=== PATIENT | female | born 1955 | race African-American/Black ===

== ENCOUNTER 2018-06-26 09:52 | Emergency (ER) | payer SELFPAY ==
[~2018-06-26] VITALS: Ht 154.9 cm; Wt 59.9 kg
[2018-06-26 10:24] VITALS: BP 130/58
[2018-06-26] MEDS ORDERED: LIDOCAINE 1% PF 2 ML VIAL. INJ ONE (10:45)
[2018-06-26] MEDS ORDERED: cefTRIAXone IM 1 GM VIAL IM ONE (10:45)
--- NOTE | 2018-06-26 10:52 | PHYS DOC ---
Adult General Chief Complaint Chief Complaint: FINGER INJURY HPI HPI Patient is a 63 year old female with history of smoking who presents to the ED today with right middle finger infection. Patient states the infection began last week, she was seen at [facility], was started on Bactrim. She went today for reevaluation today and was sent to the ED. Patient denies any fever. She is right handed. Review of Systems Review of Systems Constitutional: Denies fever or chills [] Musculoskeletal: Denies back pain or joint pain [] Integument: Reports right middle finger infection Neurologic: Denies headache, focal weakness or sensory changes [] All other systems were reviewed and found to be within normal limits, except as documented in this note. Current Medications Current Medications Current Medications Medications (Trade) Dose Ordered Sig/Jonathon Start Time Stop Time Status Last Admin Dose Admin Ceftriaxone Sodium (Rocephin Im) 1 gm 1X ONCE 06/26/18 10:45 06/26/18 10:46 DC 06/26/18 11:04 1 GM Lidocaine HCl (Xylocaine-Mpf 1% 2ml Vial) 2 ml 1X ONCE 06/26/18 10:45 06/26/18 10:46 DC 06/26/18 11:04 2 ML Allergies Allergies Allergies Coded Allergies Type Severity Reaction Last Updated Verified No Known Drug Allergies 06/26/18 No Physical Exam Physical Exam Constitutional: Well developed, well nourished, no acute distress, non-toxic appearance. [] Skin: Warm, dry, dorsal aspect of the right middle finger with a none indurated area approximately 3 x 1 cm consistent with a paronychia that opened up and drained. The area has an open area at the base of the nailbed. No obvious drainage noted during physical exam. No fluctuance. Redness noted to the area with mild warmth. Poorly cut nail into the nailed of the right middle finger. Full ROM to the right middle finger. +2 right radial pulse. Cap refill <2 seconds to the right middle finger. Back: No tenderness, no CVA tenderness. [] Extremities: No tenderness, no cyanosis, no clubbing, ROM intact, no edema. [] Neurologic: Alert and oriented X 3, normal motor function, normal sensory function, no focal deficits noted. [] Psychologic: Affect normal, judgement normal, mood normal. [] Current Patient Data Vital Signs Vital Signs Date Time Temp Pulse Resp B/P (MAP) Pulse Ox O2 Delivery O2 Flow Rate FiO2 06/26/18 10:24 99.0 60 16 130/58 (82) 98 Room Air 99.0 EKG EKG [] Radiology/Procedures Radiology/Procedures [] Course & Med Decision Making Course & Med Decision Making Pertinent Labs and Imaging studies reviewed. (See chart for details) This is a 63-year-old female patient presented to the ED today with paronychia infection of the right middle finger, patient was started on Bactrim approximately 5 days ago. She went to [facility] and was sent back to the ED. Patient was given Rocephin injection in the ED. Encouraged to continue taking the Bactrim. Infection appears to be improving considerably there was a blister over the area that has opened up and drained. Encouraged to continue soaking in Epsom salt water. Follow-up with PCP in 1-2 weeks. Dragon Disclaimer Dragon Disclaimer This electronic medical record was generated, in whole or in part, using a voice recognition dictation system. Departure Departure Impression: Primary Impression: Paronychia Disposition: 01 HOME, SELF-CARE Condition: STABLE Referrals: NON,STAFF (PCP) Follow-up with your doctor in 1-2 weeks Patient Instructions: Paronychia, [id number] Additional Instructions: You were evaluated in the emergency room for finger infection. Please soaking the finger in Epsom salted warm water twice a day. Please continue taking your Bactrim until completed. Please avoid cutting your nail so close to the the nailbed. Please follow-up with your own doctor in one week. Come back to the ED at any point symptoms worsen. MYLA RIBEIRO APRN Jun 26, 2018 10:52
== END 2018-06-26 11:33 | disposition home or self-care (01) ==
LOC: ER 09:52
DX: L03.011 Cellulitis of right finger (principal)
CPT/HCPCS: 96372; 99283; J0696

== ENCOUNTER 2018-08-01 08:42 | Emergency (ER) | payer SELFPAY ==
[~2018-08-01] VITALS: Ht 154.9 cm; Wt 59.0 kg
[2018-08-01] MEDS ORDERED: DOCUSATE 100 MG/10 ML SOLUTION. AS STA (08:51)
--- NOTE | 2018-08-01 08:56 | PHYS DOC ---
Past Medical History Past Medical History: No Pertinent History Past Surgical History: No Surgical History Alcohol Use: None Drug Use: None Adult General Chief Complaint Chief Complaint: EARACHE/EAR PAIN HPI HPI Patient is a 63 year old female with no significant medical history who presents to the ED today complaining of 10 out of 10 left ear pain that began a week ago. Patient denies any fever coughing or congestion. Review of Systems Review of Systems Constitutional: Denies fever or chills [] Eyes: Denies change in visual acuity, redness, or eye pain [] HENT: Reports left ear pain. Denies nasal congestion or sore throat [] Respiratory: Denies cough or shortness of breath [] Cardiovascular: No additional information not addressed in HPI [] GI: Denies abdominal pain, nausea, vomiting, bloody stools or diarrhea [] : Denies dysuria or hematuria [] Musculoskeletal: Denies back pain or joint pain [] Integument: Denies rash or skin lesions [] All other systems were reviewed and found to be within normal limits, except as documented in this note. Current Medications Current Medications Current Medications Medications (Trade) Dose Ordered Sig/Jonathon Start Time Stop Time Status Last Admin Dose Admin Acetaminophen (Tylenol) 1,000 mg 1X ONCE 08/01/18 09:00 08/01/18 09:01 DC 08/01/18 09:11 1,000 MG Docusate Sodium (Colace Solution) 100 mg 1X STAT 08/01/18 08:51 08/01/18 08:58 DC 08/01/18 09:10 100 MG Allergies Allergies Allergies Coded Allergies Type Severity Reaction Last Updated Verified No Known Drug Allergies 06/26/18 No Physical Exam Physical Exam Constitutional: Well developed, well nourished, no acute distress, non-toxic appearance. [] HENT: Normocephalic, atraumatic, bilateral external ears normal, oropharynx moist, no oral exudates, nose normal. [] Bilateral TM are impacted with cerumen. TM cannot be visualized Eyes: PERRLA, EOMI, conjunctiva normal, no discharge. [] Neck: Normal range of motion, no tenderness, supple, no stridor. [] Cardiovascular:Heart rate regular rhythm, no murmur [] Lungs & Thorax: Bilateral breath sounds clear to auscultation [] Abdomen: Bowel sounds normal, soft, no tenderness, no masses, no pulsatile masses. [] Skin: Warm, dry, no erythema, no rash. [] Back: No tenderness, no CVA tenderness. [] Extremities: No tenderness, no cyanosis, no clubbing, ROM intact, no edema. [] Neurologic: Alert and oriented X 3, normal motor function, normal sensory function, no focal deficits noted. [] Psychologic: Affect normal, judgement normal, mood normal. [] Current Patient Data Vital Signs Vital Signs Date Time Temp Pulse Resp B/P (MAP) Pulse Ox O2 Delivery O2 Flow Rate FiO2 08/01/18 10:32 103/52 (69) 08/01/18 10:28 82 16 97 Room Air 08/01/18 08:48 99.8 99.8 EKG EKG [] Radiology/Procedures Radiology/Procedures [] Course & Med Decision Making Course & Med Decision Making Pertinent Labs and Imaging studies reviewed. (See chart for details) This is a 63-year-old female patient presenting to the ED today with left ear pain that began a week ago. Both TM cannot be visualized due to cerumen impaction. Colace was used to clean both the ears successfully. A lot of cerumen was removed. Both TMs are visualized and they appear normal. A shunt was running a temperature of 99.8, she was concerned she has pneumonia, chest x- ray was done, chest x-ray is negative. Patient was discharged home. Follow-up with you see as well as PCP in 1-2 weeks. Dragon Disclaimer Dragon Disclaimer This electronic medical record was generated, in whole or in part, using a voice recognition dictation system. Departure Departure Impression: Primary Impression: Fever Additional Impressions: Impacted cerumen of both ears Otalgia, left ear Disposition: HOME, SELF-CARE Condition: STABLE Referrals: NON,STAFF (PCP) follow up with your doctor in 1-2 weeks Patient Instructions: Cerumen Impaction, Otalgia-Brief Additional Instructions: You were evaluated in the emergency room and noted to have cerumen impaction, we cleaned up your ears. Take Tylenol or Motrin for pain or fever. Follow-up with your doctor in 1-2 weeks. Problem Qualifiers Primary Impression: Fever Fever type: unspecified Qualified Codes: R50.9 - Fever, unspecified MUTUNGAMYLA CMO & PRESIDENT Aug 01, 2018 08:56
[2018-08-01] MEDS ORDERED: ACETAMINOPHEN 500 MG TABLET PO ONE (09:00)
[2018-08-01 10:32] VITALS: BP 103/52
--- NOTE | 2018-08-01 10:32 | RAD ---
Chest, 2 views, 08/01/2018: HISTORY: Fever The heart is at the upper limits of normal in size. The pulmonary vascularity is normal. No pulmonary consolidation is seen. There is no evidence of pleural fluid. IMPRESSION: 1. Borderline cardiomegaly. 2. No acute abnormality is detected. Electronically signed by: Willie Reyna MD (08/01/2018 10:29 AM) [facility]
== END 2018-08-01 10:59 | disposition home or self-care (01) ==
LOC: ER 08:42
DX: H61.23 Impacted cerumen, bilateral (principal); R50.9 Fever, unspecified
CPT/HCPCS: 69209; 71046; 99284

== ENCOUNTER 2020-01-28 11:39 | Emergency (ER) | payer SELFPAY ==
[~2020-01-28] VITALS: Ht 154.9 cm; Wt 59.0 kg
--- NOTE | 2020-01-28 11:53 | PHYS DOC ---
Past Medical History Past Medical History: No Pertinent History Past Surgical History: No Surgical History Smoking Status: Current Some Day Smoker Alcohol Use: None Drug Use: None General Adult EDM: Chief Complaint: DIZZY/LIGHT HEADED HPI: HPI: Patient is a 64 year old female who presents with a chief complaint of dizziness that began 5 days ago. Patient has had intermittent dizziness is worse with standing that she described as lightheadedness with some mild nausea. Patient denies any pain at this time. Patient denies any focal weakness but feels generally weak. Patient denies any recent illnesses such as nausea vomiting diarrhea or blood in her stool. Review of Systems: Review of Systems: Constitutional: Denies fever or chills. [] Eyes: Denies change in visual acuity. [] HENT: Denies nasal congestion or sore throat. Patient does have some discomfort in her right ear that is been there for some time Respiratory: Denies cough or shortness of breath. [] Cardiovascular: Denies chest pain or edema. [] GI: Denies abdominal pain, vomiting, bloody stools or diarrhea. [] Patient does have some nausea : Denies dysuria. [] Musculoskeletal: Denies back pain or joint pain. [] Integument: Denies rash. [] Neurologic: Complains of generalized weakness and dizziness but no focal deficits Endocrine: Denies polyuria or polydipsia. [] Lymphatic: Denies swollen glands. [] Psychiatric: Denies depression or anxiety. [] Heart Score: Risk Factors: Risk Factors: DM, Current or recent (<one month) smoker, HTN, HLP, family history of CAD, obesity. Risk Scores: Score 0 - 3: 2.5% MACE over next 6 weeks - Discharge Home Score 4 - 6: 20.3% MACE over next 6 weeks - Admit for Clinical Observation Score 7 - 10: 72.7% MACE over next 6 weeks - Early Invasive Strategies Allergies: Allergies: Allergies Coded Allergies Type Severity Reaction Last Updated Verified No Known Drug Allergies 06/26/18 No Physical Exam: PE: Constitutional: Well developed, well nourished, no acute distress, non-toxic appearance. [] HENT: Normocephalic, atraumatic, cerumen in the right ear, no trismus, nose normal. [] Eyes: PERRLA, EOMI, conjunctiva normal, no discharge. [] Neck: Normal range of motion, no tenderness, supple, no stridor. [] Cardiovascular:Heart rate regular rhythm, peripheral pulses are intact cap refill is brisk Lungs & Thorax: Bilateral breath sounds clear no respiratory distress Abdomen: Bowel sounds normal, soft, no tenderness, no masses, no pulsatile masses. [] Skin: Warm, dry, no erythema, no rash. [] Back: No tenderness, no CVA tenderness. [] Extremities: No tenderness, no cyanosis, no clubbing, ROM intact, no edema. [] Neurologic: Alert and oriented X 3, normal motor function, normal sensory function, no focal deficits noted. [] Normal cerebellar exam Psychologic: Affect normal, judgement normal, mood normal. [] Current Patient Data: Labs: Laboratory Tests Test 01/28/20 12:07 01/28/20 14:41 White Blood Count 3.1 x10^3/uL Red Blood Count 3.97 x10^6/uL Hemoglobin 10.3 g/dL Hematocrit 31.2 % Mean Corpuscular Volume 79 fL Mean Corpuscular Hemoglobin 26 pg Mean Corpuscular Hemoglobin Concent 33 g/dL Red Cell Distribution Width 19.6 % Platelet Count 241 x10^3/uL Neutrophils (%) (Auto) 40 % Lymphocytes (%) (Auto) 51 % Monocytes (%) (Auto) 7 % Eosinophils (%) (Auto) 1 % Basophils (%) (Auto) 1 % Neutrophils # (Auto) 1.2 x10^3/uL Lymphocytes # (Auto) 1.6 x10^3/uL Monocytes # (Auto) 0.2 x10^3/uL Eosinophils # (Auto) 0.0 x10^3/uL Basophils # (Auto) 0.0 x10^3/uL Sodium Level 137 mmol/L Potassium Level 3.9 mmol/L Chloride Level 106 mmol/L Carbon Dioxide Level 26 mmol/L Anion Gap 5 Blood Urea Nitrogen 8 mg/dL Creatinine 0.7 mg/dL Estimated GFR (Cockcroft-Gault) 102.6 BUN/Creatinine Ratio 11 Glucose Level 100 mg/dL Calcium Level 8.4 mg/dL Total Bilirubin 0.1 mg/dL Aspartate Amino Transf (AST/SGOT) 22 U/L Alanine Aminotransferase (ALT/SGPT) 20 U/L Alkaline Phosphatase 103 U/L Troponin I Quantitative < 0.017 ng/mL Total Protein 8.1 g/dL Albumin 2.9 g/dL Albumin/Globulin Ratio 0.6 Urine Collection Type Unknown Urine Color Yellow Urine Clarity Clear Urine pH 5.5 Urine Specific [place] <=1.005 Urine Protein Negative mg/dL Urine Glucose (UA) Negative mg/dL Urine Ketones (Stick) Negative mg/dL Urine Blood Negative Urine Nitrite Negative Urine Bilirubin Negative Urine Urobilinogen Dipstick 0.2 mg/dL Urine Leukocyte Esterase Negative Urine RBC 1-2 /HPF Urine WBC Occ /HPF Urine Squamous Epithelial Cells Few /LPF Urine Bacteria 0 /HPF Urine Mucus Slight /LPF Vital Signs: Vital Signs Date Time Temp Pulse Resp B/P (MAP) Pulse Ox O2 Delivery O2 Flow Rate FiO2 01/28/20 15:21 55 14 100 01/28/20 14:51 55 14 100 01/28/20 14:21 54 14 100 01/28/20 13:50 48 16 100 01/28/20 13:21 46 16 100 01/28/20 12:51 50 16 100 01/28/20 11:50 98.1 55 16 155/70 (98) 99 Room Air 98.1 01/28/20 11:49 55 16 100 EKG: EKG: [] EKG interpreted by la sinus bradycardia with a rate of 55 normal axis normal intervals normal ST segments Radiology/Procedures: Radiology/Procedures: [][facility] [address] [place] [address] IMAGING REPORT Signed PATIENT: DIANA STANTON ACCOUNT: [id number] : 1955 LOCATION: ER AGE: 64 SEX: F EXAM STATUS: REG ER ORD. PHYSICIAN: KELBY GRIJALVA MD REASON: dizzy PROCEDURE: PORTABLE CHEST 1V AP portable chest radiograph 01/28/2020 Clinical History: Dizziness. An AP erect portable digital radiograph of the chest was obtained. Comparison study is dated 08/01/2018. The cardiac silhouette is borderline enlarged. The thoracic aorta is minimally tortuous. Atherosclerotic calcification of the thoracic aorta is seen. No acute parenchymal or infiltrate is noted. No pneumothorax or pleural effusion is seen. Degenerative changes are seen involving the thoracic spine and both shoulders. Impression: No acute abnormality is seen. Electronically signed by: Juice Barrientos MD (01/28/2020 12:42 PM) [id number] DICTATED and SIGNED BY: JUICE BARRIENTOS MD DATE: 01/28/20 1242 [facility] [address] [place] [address] IMAGING REPORT Signed PATIENT: DIANA STANTON ACCOUNT: [id number] : 1955 LOCATION: ER AGE: 64 SEX: F EXAM STATUS: REG ER ORD. PHYSICIAN: KELBY GRIJALVA MD REASON: dizzy PROCEDURE: CT HEAD WO CONTRAST EXAM: CT Head without IV contrast INDICATION: Reason: dizzy / Spl. Instructions: / History: TECHNIQUE: Multi-detector row CT images were obtained of the head without the use of IV contrast. All CT scans performed at this facility utilize dose optimization techniques as appropriate to the exam, including the following: Automated exposure control and adjustment of the mA and/or KV according to patient size (this includes techniques or standardized protocols for targeted exams where dose is indication/reason for exam). COMPARISON: None FINDINGS: BRAIN PARENCHYMA: No evidence of acute intraparenchymal hemorrhage or infarct. No abnormal parenchymal density or mass. VENTRICLES & EXTRA-AXIAL SPACES: Ventricles are within normal limits. Basilar cisterns are patent. No pathologic extra-axial fluid collection or mass. ORBITS: Orbital contents are unremarkable. SINUSES: Visualized paranasal sinuses and mastoid air cells are clear. OSSEOUS & SOFT TISSUES: Calvarium and skull base are intact. There is however diffuse mottled demineralization in the calvarium. IMPRESSION: 1. No acute intracranial pathology. 2. Diffuse mottled osseous demineralization in a pattern suspicious for a marrow replacing process such as multiple myeloma. Correlate clinically. Electronically signed by: Jin Sharpe MD (01/28/2020 12:29 PM) [id number] DICTATED and SIGNED BY: JIN SHARPE MD DATE: 01/28/20 5231 Course & Med Decision Making: Course & Med Decision Making Pertinent Labs and Imaging studies reviewed. (See chart for details) [] 64-year-old female presents with lightheaded dizziness. Patient has a normal neurological exam including a normal cerebellar exam. Patient has CT findings concerning for multiple myeloma although there is no protein in her urine. Patient does have mild anemia but no history of hematochezia or melena. Discussed with patient the importance of follow-up with a artificial flowers dyer and oncologist to rule out multiple myeloma as well as work-up for anemia. I do not think that she has had a stroke at this point with a normal neurological exam and no abnormal brain findings in light of having symptoms for 5 days. Patient has no chest pain and her EKG is normal and her troponin is negative, doubt acute coronary syndrome. Patient does have some bradycardia which may be the cause of her symptoms. Dragon Disclaimer: Dragon Disclaimer: This electronic medical record was generated, in whole or in part, using a voice recognition dictation system. Departure Departure Impression: Primary Impression: Dizziness Additional Impressions: Anemia Bradycardia Disposition: 01 DC HOME SELF CARE/HOMELESS Referrals: NO PCP (PCP) DARYL NG MD Patient Instructions: Anemia, Nonspecific-Brief, Bradycardia, Dizziness Additional Instructions: EMERGENCY DEPARTMENT GENERAL DISCHARGE INSTRUCTIONS THANK YOU for coming to [facility] Emergency Department (ED) today and trusting us with your care. We trust that you had a positive experience in our Emergency Department. If you wish to speak to the department Management you can contact the production department supervisor at . YOUR FOLLOW UP INSTRUCTIONS ARE FOLLOWS: Do you have a private doctor? If you do not have a private doctor, please ask for a resource list of physicians or clinics that may be able to assist you with follow up care. The Emergency Physician has interpreted your x-rays. The X-ray specialist will also review them. If there is a change in the findings you will be notified in 48 hours when at all possible. A lab test or lab culture may have been done, your results will be reviewed and you will be notified if you need a change in treatment. ADDITIONAL INSTRUCTIONS AND INFORMATION Your care today has been supervised by a physician who is specially trained in emergency care. Many problems require more than one evaluation for a complete diagnosis and treatment. We recommend that you schedule your follow up appointment as recommended to ensure complete treatment of your illness or injury. If you are unable to obtain follow up care and continue to have a problem, or if your condition worsens we recommend that you return to the ED. We are not able to safely determine your condition over the phone nor are we able to give sound medical advice over the phone. For these safety reasons, if you call for medical advice we will ask you to come to the ED for further evaluation If you have any questions regarding these discharge instructions please call the ED at . SAFETY INFORMATION In the interest of safety, wellness, and injury prevention; we encourage you to wear your seatbelt, if you smoke; quit smoking, and we encourage your family to use protective helmet for bicycling and other sporting events that present an increased risk for head injury. IF YOUR SYMPTOMS WORSEN OR NEW SYMPTOMS DEVELOP, OR YOU HAVE CONCERNS ABOUT YOUR CONDITION; OR IF YOUR CONDITION WORSENS WHILE YOU ARE WAITING FOR YOUR FOLLOW UP APPOINTMENT; EITHER CONTACT YOUR PRIMARY CARE DOCTOR, THE PHYSICIAN WHOSE NAME AND NUMBER YOU WERE GIVEN, OR RETURN TO THE ED IMMEDIATELY. Scripts Ondansetron Hcl (ZOFRAN) 4 Mg Tablet 1 TAB PO Q6HRS for NAUSEA, #20 TAB Prov: KELBY GRIJALVA MD 01/28/20 Meclizine Hcl (MECLIZINE HCL) 25 Mg Tablet 25 MG PO PRN TID PRN for DIZZINESS, #30 dizziness Prov: KELBY GRIJALVA MD 01/28/20 KELBY GRIJALVA MD Jan 28, 2020 11:53
[2020-01-28 12:16] LABS: BASO % 1 % (0-3); EOS % 1 % (0-3); HEMATOCRIT 31.2 % (36.0-47.0); HEMOGLOBIN 10.3 g/dL (12.0-15.5); LYMPH # 1.6 x10^3/uL (1.0-4.8); LYMPH % 51 % (24-48); MEAN CORPUSCULAR HEMOGLOBIN 26 pg (25-35); MEAN CORPUSCULAR HGB CONC 33 g/dL (31-37); MEAN CORPUSCULAR VOLUME 79 fL (79-100); MONO # 0.2 x10^3/uL (0.0-1.1); MONO % 7 % (0-9); NEUT # 1.2 x10^3/uL (1.8-7.7); NEUT % 40 % (31-73); PLATELET COUNT 241 x10^3/uL (140-400); RED BLOOD COUNT 3.97 x10^6/uL (3.50-5.40); RED CELL DISTRIBUTION WIDTH 19.6 % (11.5-14.5); WHITE BLOOD COUNT 3.1 x10^3/uL (4.0-11.0)
[2020-01-28 12:27] LABS: CALCIUM 8.4 mg/dL (8.5-10.1); CREATININE 0.7 mg/dL (0.6-1.0); GFR 102.6; POTASSIUM 3.9 mmol/L (3.5-5.1)
[2020-01-28 12:32] LABS: ALBUMIN 2.9 g/dL (3.4-5.0); ALBUMIN/GLOBULIN RATIO 0.6 (1.0-1.7); TOTAL BILIRUBIN 0.1 mg/dL (0.2-1.0); TOTAL PROTEIN 8.1 g/dL (6.4-8.2)
--- NOTE | 2020-01-28 12:32 | RAD ---
EXAM: CT Head without IV contrast INDICATION: Reason: dizzy / Spl. Instructions: / History: TECHNIQUE: Multi-detector row CT images were obtained of the head without the use of IV contrast. All CT scans performed at this facility utilize dose optimization techniques as appropriate to the exam, including the following: Automated exposure control and adjustment of the mA and/or KV according to patient size (this includes techniques or standardized protocols for targeted exams where dose is indication/reason for exam). COMPARISON: None FINDINGS: BRAIN PARENCHYMA: No evidence of acute intraparenchymal hemorrhage or infarct. No abnormal parenchymal density or mass. VENTRICLES & EXTRA-AXIAL SPACES: Ventricles are within normal limits. Basilar cisterns are patent. No pathologic extra-axial fluid collection or mass. ORBITS: Orbital contents are unremarkable. SINUSES: Visualized paranasal sinuses and mastoid air cells are clear. OSSEOUS & SOFT TISSUES: Calvarium and skull base are intact. There is however diffuse mottled demineralization in the calvarium. IMPRESSION: 1. No acute intracranial pathology. 2. Diffuse mottled osseous demineralization in a pattern suspicious for a marrow replacing process such as multiple myeloma. Correlate clinically. Electronically signed by: Citlaly Sharpe MD (01/28/2020 12:29 PM) [id number]
--- NOTE | 2020-01-28 12:45 | RAD ---
AP portable chest radiograph 01/28/2020 Clinical History: Dizziness. An AP erect portable digital radiograph of the chest was obtained. Comparison study is dated 08/01/2018. The cardiac silhouette is borderline enlarged. The thoracic aorta is minimally tortuous. Atherosclerotic calcification of the thoracic aorta is seen. No acute parenchymal or infiltrate is noted. No pneumothorax or pleural effusion is seen. Degenerative changes are seen involving the thoracic spine and both shoulders. Impression: No acute abnormality is seen. Electronically signed by: Juice Barrientos MD (01/28/2020 12:42 PM) [id number]
[2020-01-28 14:52] LABS: BILIRUBIN,URINE NEGATIVE (NEG); CLARITY,URINE CLEAR; COLOR,URINE YELLOW; NITRITE,URINE NEGATIVE (NEG); PH,URINE 5.5 (<5.0-8.0); PROTEIN,URINE NEGATIVE (NEG-TRACE); UROBILINOGEN,URINE 0.2 mg/dL (0.2 mg/dL)
[2020-01-28 15:00] LABS: BACTERIA,URINE 0 /HPF (0-FEW); WBC,URINE OCC /HPF (0-4)
[2020-01-28] MEDS ORDERED: ONDA4TAB7 PO (16:43)
[2020-01-28] MEDS ORDERED: MECL-75 PO (16:43)
[2020-01-28 17:00] VITALS: BP 174/73
--- NOTE | 2020-01-28 17:37 | EKG ---
[facility] [address] [place] [address] Test Date: 2020-01-28 Test Time: 11:53:52 Pat Name: DIANA STANTON Department: Room: Gender: F Medical Receptionist Biller: : 1955 Requested By: KELBY GRIJALVA Order Number: [id number] Reading MD: Measurements Intervals Robinson Rate: 55 P: 60 [place]: 148 QRS: 43 QRSD: 84 T: 30 QT: 436 QTc: 419 Interpretive Statements SINUS RHYTHM NORMAL ECG RI6.02 No previous ECG available for comparison
== END 2020-01-28 17:05 | disposition home or self-care (01) ==
LOC: ER 11:39
DX: R42 Dizziness and giddiness (principal); D64.9 Anemia, unspecified; R00.1 Bradycardia, unspecified; F17.200 Nicotine dependence, unspecified, uncomplicated
CPT/HCPCS: 36415; 70450; 71045; 80053; 81001; 84484; 85025; 93005; 99285

== ENCOUNTER → 2020-01-31 | Outpatient (CLI) | payer SELFPAY ==
[2020-01-28 17:00] VITALS: BP 174/73
[~2020-01-31] MED LIST: MECL-75 PO; ONDA4TAB7 PO
[2020-01-31 15:27] LABS: BASO % 0 % (0-3); EOS % 1 % (0-3); HEMATOCRIT 31.4 % (36.0-47.0); HEMOGLOBIN 10.4 g/dL (12.0-15.5); LYMPH # 1.8 x10^3/uL (1.0-4.8); LYMPH % 44 % (24-48); MEAN CORPUSCULAR HEMOGLOBIN 26 pg (25-35); MEAN CORPUSCULAR HGB CONC 33 g/dL (31-37); MEAN CORPUSCULAR VOLUME 79 fL (79-100); MONO # 0.3 x10^3/uL (0.0-1.1); MONO % 7 % (0-9); NEUT # 1.9 x10^3/uL (1.8-7.7); NEUT % 47 % (31-73); PLATELET COUNT 277 x10^3/uL (140-400); RED BLOOD COUNT 3.98 x10^6/uL (3.50-5.40); RED CELL DISTRIBUTION WIDTH 20.1 % (11.5-14.5)
[2020-01-31 15:59] LABS: PLT ESTIMATE ADEQUATE (ADEQUATE)
[2020-01-31 16:00] LABS: ANISOCYTOSIS SLIGHT; OVALOCYTES FEW; POIKILOCYTOSIS SLIGHT; TEAR DROP CELLS OCC
[2020-01-31 16:13] LABS: LACTATE DEHYDROGENASE 211 U/L (81-234)
[2020-02-01 13:13] LABS: KAPPA FREE 318.7 mg/L (3.3-19.4); KAPPA LAMBDA RATIO 18.32 (0.26-1.65); LAMBDA FREE 17.4 mg/L (5.7-26.3)
[2020-02-01 19:10] LABS: ALBUM 3.2 g/dL (2.9-4.4); ALPHA 1 0.2 g/dL (0.0-0.4); ALPHA 2 1.1 g/dL (0.4-1.0); BETA 0.7 g/dL (0.7-1.3); GAMMA 2.5 g/dL (0.4-1.8); PROTEIN TOTAL 7.8 g/dL (6.0-8.5); SPEP AG RATIO 0.7 (0.7-1.7)
[2020-02-04 16:10] LABS: HGB ELECROPHORESIS COMMENT Note: (.)
[2020-02-05 05:11] LABS: COPPER LEVEL 133 ug/dL (72-166)
== END ==
LOC: ONCLAB 15:06
PROVIDERS: ATTEND Internal Medicine Hematology & Oncology
DX: D64.9 Anemia, unspecified (principal)
CPT/HCPCS: 36415; 82525; 82607; 82668; 82728; 82746; 83010; 83020; 83520; 83540; 83550; 83615; 84165; 84443; 85025; 85045

== ENCOUNTER → 2020-03-03 | Outpatient (CLI) | payer SELFPAY ==
[2020-03-03 14:09] LABS: BASO % 0 % (0-3); EOS # 0.1 x10^3/uL (0.0-0.7); EOS % 2 % (0-3); HEMOGLOBIN 10.7 g/dL (12.0-15.5); LYMPH # 1.6 x10^3/uL (1.0-4.8); LYMPH % 46 % (24-48); MEAN CORPUSCULAR HEMOGLOBIN 26 pg (25-35); MEAN CORPUSCULAR HGB CONC 34 g/dL (31-37); MEAN CORPUSCULAR VOLUME 78 fL (79-100); MONO # 0.4 x10^3/uL (0.0-1.1); MONO % 12 % (0-9); NEUT # 1.4 x10^3/uL (1.8-7.7); NEUT % 40 % (31-73); PLATELET COUNT 257 x10^3/uL (140-400); RED BLOOD COUNT 4.09 x10^6/uL (3.50-5.40); RED CELL DISTRIBUTION WIDTH 20.4 % (11.5-14.5); WHITE BLOOD COUNT 3.5 x10^3/uL (4.0-11.0)
[2020-03-03 14:25] LABS: PLT ESTIMATE ADEQUATE (ADEQUATE); TEAR DROP CELLS OCC
[2020-03-03 14:26] LABS: ANISOCYTOSIS MOD; SCHISTOCYTES OCC; TARGET CELLS OCC
== END ==
LOC: ONCLAB 13:47
PROVIDERS: ATTEND Internal Medicine Hematology & Oncology
DX: D64.9 Anemia, unspecified (principal)
CPT/HCPCS: 36415; 85025